=== PATIENT | male | born 1965 | race Hispanic/Latino ===

== ENCOUNTER 2016-06-12 20:53 | Inpatient (IN) | payer SELFPAY ==
[2016-06-12 22:39] LABS: BASO % 0.4 % (0.0-2.0); EOS % 0.6 % (0.0-4.0); HEMATOCRIT 34.2 % (35.0-51.0); LYMPH # 1.1 K/uL (1.0-4.3); LYMPH % 13.4 % (20.0-40.0); MEAN CELL VOLUME 81.1 fL (80.0-94.0); MEAN CORPUSCULAR HEMOGLOBIN 27.1 pg (27.0-31.0); MEAN CORPUSCULAR HGB CONC 33.4 g/dL (33.0-37.0); MEAN PLATELET VOLUME 7.8 fL (7.2-11.7); MONO # 0.7 K/uL (0.0-0.8); MONO % 8.7 % (0.0-10.0); RED CELL DISTRIBUTION WIDTH 13.6 % (11.5-14.5); WHITE BLOOD COUNT 7.9 K/uL (4.8-10.8)
[2016-06-12 22:48] LABS: CHLORIDE 102 mmol/L (98-107); SODIUM 143 mmol/L (132-148)
[2016-06-12 22:49] LABS: POTASSIUM 3.3 mmol/L (3.6-5.2)
[2016-06-12 22:51] LABS: ALB/GLOB RATIO 1.3 (1.0-2.1); ALKALINE PHOSPHATASE 67 U/L (38-126); ALT/SGPT 42 U/L (21-72); AST/SGOT 36 U/L (17-59); BILIRUBIN,TOTAL 1.1 mg/dL (0.2-1.3); BLOOD UREA NITROGEN 19 mg/dL (9-20); CALCIUM 9.2 mg/dl (8.6-10.4); CARBON DIOXIDE 24 mmol/L (22-30); GFR AFRICAN-AMERICAN > 60; GLUCOSE,RANDOM 107 mg/dL (75-110); TOTAL PROTEIN 7.2 g/dL (6.3-8.3)
[2016-06-12 22:52] LABS: ALCOHOL SERUM < 10 mg/dl (0-10)
[2016-06-12 23:17] LABS: URINE BILIRUBIN NEGATIVE (NEGATIVE); URINE BLOOD NEGATIVE (NEGATIVE); URINE COLOR Yellow (YELLOW); URINE GLUCOSE (UA) NORMAL (Normal); URINE KETONE NEGATIVE (NEGATIVE); URINE LEUKOCYTE ESTERASE NEG Leu/uL (Negative); URINE PROTEIN NEGATIVE (NEGATIVE); URINE UROBILINOGEN NORMAL mg/dL (0.2-1.0); WBC URINE 1 /hpf (0-5)
--- NOTE | 2016-06-12 23:22 | C.PDOC ---
History Of Present Illness 50 year old male presents to the ED with suicidal ideation and plan to kill himself by overdosing on heroin. Patient states he has "ordered the bags (of heroin/fentanyl)" in order to overdose. He admits to use of IV heroin and fentanyl, his last use was earlier today. Patient denies any homicidal ideations or physical complaints at this time. Time Seen by Provider: 06/12/16 20:58 Chief Complaint (Nursing): Psychiatric Evaluation History Per: Patient History/Exam Limitations: no limitations Current Symptoms Are (Timing): Still Present Modifying Factor(s): Narcotics Severity: Moderate Associated Symptoms: Suicidal Plan (overdose on heroin) Involuntary Hold By: Emergency Physician Past Medical History Reviewed: Historical Data, Nursing Documentation, Vital Signs Vital Signs: Last Vital Signs Temp 97.7 F 06/14/16 08:00 Pulse 82 06/14/16 15:50 Resp 20 06/14/16 08:00 BP 115/70 06/14/16 15:50 Pulse Ox 99 06/13/16 07:45 - Medical History PMH: No Chronic Diseases Family History: States: No Known Family Hx - Social History Hx Alcohol Use: No Hx Substance Use: Yes - Immunization History Hx Tetanus Toxoid Vaccination: No Hx Influenza Vaccination: No Hx Pneumococcal Vaccination: No Review Of Systems Except As Marked, All Systems Reviewed And Found Negative. Constitutional: Negative for: Fever, Chills Cardiovascular: Negative for: Chest Pain, Palpitations Respiratory: Negative for: Cough, Shortness of Breath Gastrointestinal: Negative for: Nausea, Vomiting, Abdominal Pain, Diarrhea Skin: Negative for: Rash Psych: Positive for: Suicidal ideation Physical Exam - Physical Exam Appears: Non-toxic, Other (appears drowsy ) Skin: Warm, Dry, Ecchymosis (scattered on extremities ), Other (multiple track allen on extremities ) Head: Atraumatic, Normacephalic Eye(s): bilateral: Normal Inspection, PERRL (2-3 mm and reactive pupils ), EOMI Oral Mucosa: Moist Neck: Supple Cardiovascular: Rhythm Regular, Other (bradycardic ) Respiratory: Normal Breath Sounds, No Rales, No Rhonchi, No Wheezing Gastrointestinal/Abdominal: Normal Exam, Bowel Sounds, Soft, No Tenderness, No Guarding, No Rebound Extremity: Normal ROM Extremity: Bilateral: Atraumatic, Normal ROM Pulses: Left Dorsalis Pedis: Normal, Right Dorsalis Pedis: Normal Neurological/Psych: Other (awake, alert, drowsy appearing, moving all 4 extremities spontaneously.) ED Course And Treatment - Laboratory Results Result Diagrams: 06/12/16 22:37 06/12/16 22:37 O2 Sat by Pulse Oximetry: 100 (room air ) Pulse Ox Interpretation: Normal Progress Note: Blood work, UA, UDS ordered and reviewed. 12:40am- Patient medically cleared. Pending crisis eval. 2:15am- Patient arousable to verbal stimuli, in no distress. 6:40am- Patient accepted for psychiatric admission by Dr. Nelson - depression, opiate dependence. Disposition - Disposition Disposition: HOSPITALIZED Disposition Time: 06:40 Condition: STABLE - Clinical Impression Clinical Impression: Depression, Suicidal ideation, Heroin dependence - Scribe Statement The provider has reviewed the documentation as recorded by the Scribe Chantel Edmondson All medical record entries made by the Scribe were at my direction and personally dictated by me. I have reviewed the chart and agree that the record accurately reflects my personal performance of the history, physical exam, medical decision making, and the department course for this patient. I have also personally directed, reviewed, and agree with the discharge instructions and disposition. Decision To Admit - Pt Status Changed To: Hospital Disposition Of: Inpatient - Admit Certification Admit to Inpatient:: After my assessment, the patient will require hospitalization for at least two midnights. This is because of the severity of symptoms shown, intensity of services needed, and/or the medical risk in this patient being treated as an outpatient. - InPatient: Physician Admission Certification: I certify that this patient requires 2 or more midnights of care for the following reason:: see notes - . Bed Request Type: Psychiatry Admitting Physician: Yvette Nelson Patient Diagnosis: Depression, Suicidal ideation, Heroin dependence
[2016-06-13] MEDS ORDERED: Potassium Chloride 20 mEq ER Tab PO STA (01:11)
[2016-06-13] MEDS ORDERED: Potassium Chloride 20 mEq ER Tab PO ONE (04:52)
--- NOTE | 2016-06-13 09:37 | PCM.PSYCH ---
Initial Psychiatric Evaluation - Initial Psychiatric Evaluation Type of Admission: Voluntary Legal Status: Capacity Past Psychiatric History - Past Psychiatric History Pertinent Medical Hx (Current Medical&Sleep Prob, Allergies): Allergies Allergy/AdvReac Type Severity Reaction Status Date / Time No Known Allergies Allergy Unverified 06/12/16 21:01 No Known Home Med 06/12/16
[2016-06-14 11:03] VITALS: RESP 20; TEMP 97.7
[2016-06-14 15:50] VITALS: BP 115/70; PULSE 82
--- NOTE | 2016-06-14 16:29 | PCM.PSYCH ---
Initial Psychiatric Evaluation - Initial Psychiatric Evaluation Type of Admission: Voluntary Legal Status: Capacity Chief Complaint (in patient's own words): I was soaked from the rain and I needed a place to stay. History of Present Illness and Precipitating Events: 50 y/o, , lives alone in [place], has one child, works as an elevator repair mechanic, no psychiatric history and a PMH of endocarditis and MRSA infection. Pt was admitted to the ED last Tuesday for depression and suicidal ideation. Pt states that he was arrested last Tuesday for possession of hypodermic needles. He states that he injected 2 bags of Fentanyl, then blacked out and when he regained consciousness he was surrounded by 5 police officers who later found the hypodermic needles in his car and took him to residential. Patient was let out of residential this past Tuesday, however he was unable to get his belongings including his truck, wallet and keys and had nowhere to sleep. He says that someone suggested for him to go to the ED and say that he wanted to kill himself in order to get admitted. Pt states that he injects 4 bags of Fentanyl daily. Pt states that he has no more good veins left and is forced to inject intramuscularly.The last time he used Fentanyl was this past Tuesday. Pt also uses cocaine occasionally and states that sometimes it helps to balance out the Fentanyl high. He was 7 years clean and relapsed in after undergoing total knee replacement surgery. Pt states that the morphine used for pain control after the surgery caused him to relapse. Pt also states that he has a hole in his heart and was advised not to use methadone which has prevented him from getting sober. He denies alcohol or tobacco use. Patient has never seen a psychiatrist and denies any psychiatric history or family psychiatric history. Pt states that the distant cousins on his father's side are heroin addicts. Pt appears restless, slightly anxious, unkempt, however pleasant and cooperative. He is complaining of diarrhea since last Tuesday. He states that he goes to the bathroom 5 times a day. He is also anxious since he is not shooting Fentanyl. Pt also complains of shakes. States that his sleep is excellent and that appetite is coming back. He denies homicidal or suicidal ideations, visual or auditory hallucinations or persecutory delusions. Patient denies any medication side effects. fter discharge the patient is planning on going back to [place] and trying to go back to the methadone clinic. Past Psych Hx: none Fam Psych Hx: none Fam Drug Hx: distant cousin's on father's side; heroin PMH; Endocarditis, MRSA Current Medications: Active Medications Generic Name Dose Route Start Last Admin Trade Name Freq PRN Reason Stop Dose Admin Dicyclomine HCl 10 mg 06/13/16 09:39 Bentyl PO Q6 PRN Muscle spasm Diphenhydramine HCl 50 mg 06/13/16 09:40 Benadryl PO Q6 PRN Extra Pyramidal Symptoms Pneumococcal Polyvalent Vaccine 0.5 ml 06/17/16 10:00 Pneumovax 23 Vaccine IM 06/17/16 10:01 .ONCE ONE Trazodone HCl 50 mg 06/13/16 22:00 06/13/16 22:08 Desyrel PO 50 mg HS BOB Administration Past Psychiatric History - Past Psychiatric History Previous Treatment History: None Pertinent Medical Hx (Current Medical&Sleep Prob, Allergies): Allergies Allergy/AdvReac Type Severity Reaction Status Date / Time No Known Allergies Allergy Unverified 06/12/16 21:01 No Known Home Med 06/12/16 Review of Systems - Gastrointestinal Gastrointestinal: Diarrhea. absent: Abdominal Pain, Vomiting - Neurological Neurological: absent: Headaches - Psychiatric Psychiatric: Abnormal Sleep Pattern, Anxiety. absent: Hallucinations, Homicidal Ideation, Suicidal Ideation, Visual Hallucinations - Endocrine Endocrine: absent: Cold Intolorance, Excessive Sweating, Heat Intolorance Mental Status Examination - Personal Presentation Personal Presentation: Looks older than stated age - Affect Affect: Constricted - Motor Activity Motor Activity: Calm - Reliability in Providing Information Reliability in Providing Information: Fair - Speech Speech: Organized - Mood Mood: Neutral - Formal Thought Process Formal Thought Process: No Impairment - Cognitive Functions Orientation: Person, Place, Situation, Time Sensorium: Alert Attention/Concentration: Attentive Memory: Recent intact, as evidence by: Ability to recall events of the day, Remote intact, as evidenced by: Abilit to recall sig. life events - Risk Risk: Diminished functioning - Strength & Assets Inventory Strength & Assets Inventory: Cooperative DSM 5 DX - DSM 5 DSM 5 Diagnosis: Adjustment disorder with anxiety and depression Opioid use d/o Cocaine use d/o - Recommended/Plan of Treatment Treatment Recommendations and Plan of Treatment: Support and psychoed Doesn't want meds DC tomorrow likely Projected ELOS: 3 days
--- NOTE | 2016-06-15 09:38 | PCM.PYCHDC ---
Mental Status Examination - Mental Status Examination Orientation: Person, Place, Time Memory: Intact Mood: Anxious Affect: Broad Speech: Appropriate Attention: WNL Concentration: WNL Association: WNL Fund of Knowledge: WNL Formal Thought Process: No Impairment Suicidal Ideation: No Current Homicidal Ideation?: No Discharge Summary - Discharge Note Reason for Hospitalization: Depression and suicidal ideation Consultations:: List each consultation separately and include: 1. Reason for request. 2. Findings. 3. Follow-up Summary of Hospital Course include:: 1. Description of specific treatment plan utilized for patients during their course of treatmen. 2. Summarize the time- course for resolution of acute symptoms and/or regressed behaviors. 3. Describe issues identified and worked on during hospitalization. 4. Describe medication utilized. 5. Describe medical problems identified and treated. 6. 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 Pt was admitted to the ED last Tuesday for depression and suicidal ideation. On admission: Pt states that he was arrested last Tuesday for possession of hypodermic needles. He states that he injected 2 bags of Fentanyl, then blacked out and when he regained consciousness he was surrounded by 5 police officers who later found the hypodermic needles in his car and took him to senior care. Patient was let out of senior care this past Tuesday, however he was unable to get his belongings including his truck, wallet and keys and had nowhere to sleep. He says that someone suggested for him to go to the ED and say that he wanted to kill himself in order to get admitted. Pt states that he injects 4 bags of Fentanyl daily. Pt states that he has no more good veins left and is forced to inject intramuscularly.The last time he used Fentanyl was this past Tuesday. Pt also uses cocaine occasionally and states that sometimes it helps to balance out the Fentanyl high. He was 7 years clean and relapsed in after undergoing total knee replacement surgery. Pt states that the morphine used for pain control after the surgery caused him to relapse. Pt also states that he has a hole in his heart and was advised not to use methadone which has prevented him from getting sober. He denies alcohol or tobacco use. Patient has never seen a psychiatrist and denies any psychiatric history or family psychiatric history. Pt states that the distant cousins on his father's side are heroin addicts. Pt appears restless, slightly anxious, unkempt, however pleasant and cooperative. He is complaining of diarrhea since last Tuesday. He states that he goes to the bathroom 5 times a day. He is also anxious since he is not shooting Fentanyl. Pt also complains of shakes. States that his sleep is excellent and that appetite is coming back. He denies homicidal or suicidal ideations, visual or auditory hallucinations or persecutory delusions. Patient denies any medication side effects. fter discharge the patient is planning on going back to [place] and trying to go back to the methadone clinic. Past Psych Hx: none Fam Psych Hx: none Fam Drug Hx: distant cousin's on father's side; heroin PMH; Endocarditis, MRSA Hospital Course: The pt was admitted and started on treatment with psychotherapy, support, psychoeducation and prn medications. NE and CBT used. The pt attended groups and activities, as well as milieu therapy. All the risks and benefits of medications are discussed and the patient understood and agreed. After care discussed with the patient. Since he claimed he was OK in general, he declined any referrals and said he would go down to [place] for a rehab. - Final Diagnosis (DSM 5) Condition upon Discharge: STABLE DSM 5: Adjustment d/o - with mixed anx/depr. Opioid use disorder Disposition: HOME/ ROUTINE Follow-up Treatment Plan: Pt is not interested in treatment here in [place] Attend [facility] rehab in [place] Attend NA Use relapse prevention skills Return to ER if experience suicidal ideation, homicidal ideation, agitation
[2016-06-15 17:33] VITALS: O2SAT 100
[2016-06-17] MEDS ORDERED: Pneumococcal 23-Valent Vaccine IM ONE (10:00)
== END 2016-06-15 12:50 | disposition home or self-care (01) | DRG 882 ==
LOC: C.ER 20:53 → C.9OBSV 22:11 → OBSVTOIN 06-13 06:41 → C.9E 06-13 07:02 → C.5E 06-13 07:33
PROVIDERS: ADMIT Emergency Medicine; ATTEND Psychiatry & Neurology Psychiatry
PROC: GZ56ZZZ Individual Psychotherapy, Supportive (ICD-10-PCS; principal; 2016-06-13)
PROC: HZ59ZZZ Individual Psychotherapy for Substance Abuse Treatment, Supportive (ICD-10-PCS; 2016-06-13)
DX: F43.23 Adjustment disorder with mixed anxiety and depressed mood (principal); F11.20 Opioid dependence, uncomplicated; Z86.14 Personal history of Methicillin resistant Staphylococcus aureus infection